=== PATIENT | female | born 1970 | race African-American/Black ===

== ENCOUNTER 2020-04-04 06:21 | Outpatient (CLI) | payer BC, SELFPAY ==
[2020-04-04 16:38] LABS: SARS-CoV-2 RNA PCR Negative
== END 2020-04-04 06:22 | disposition home or self-care (01) ==
LOC: ANHCOVIDDT 06:23
PROVIDERS: Visit Provider Obstetrics & Gynecology
DX: Z01.818 Encounter for other preprocedural examination (principal); Z11.59 Encounter for screening for other viral diseases
CPT/HCPCS: 87635; C9803; U0003

== ENCOUNTER 2020-04-04 09:55 | Outpatient (CLI) | payer BC, SELFPAY ==
--- NOTE | 2020-04-04 10:05 | ECG_ITS ---
Measurements Intervals [place] Rate: 81 P: 60 SC: 216 QRS: 43 QRSD: 90 T: 57 QT: 376 QTc: 439 Interpretive Statements SINUS RHYTHM WITH FIRST DEGREE AV BLOCK DELAYED PRECORDIAL R/S TRANSITION NONSPECIFIC T-WAVE ABNORMALITY- HIGH LATERAL LEADS BASELINE ARTIFACT- I, II, III, AVR, AVL, AVF, V6 ABNORMAL ECG Electronically Signed On 04-04-2020 11:41:24 CDT by Jair Connelly D.O.
== END 2020-04-04 09:56 | disposition home or self-care (01) ==
LOC: ANHSURGERY 10:05
PROVIDERS: PCP Family Medicine; Visit Provider Obstetrics & Gynecology
DX: I10 Essential (primary) hypertension (principal); I44.0 Atrioventricular block, first degree
CPT/HCPCS: 93005

== ENCOUNTER 2020-04-06 00:50 | Day surgery (SDC) | payer BC, SELFPAY ==
--- NOTE | 2020-04-04 06:50 | P.HP_ITS ---
H&P: HPI History of Present Illness Chief complaint: excessive vaginal bleeding Narrative: Samia Boucher is a 49 year old female was admitted for hysteroscopy dilatation curettage as well as probable polypectomy. She complained of vaginal bleeding. She underwent an ultrasound which showed some free fluid in the uterus consistent with probable blood and what appears to be a polyp. Risks and benefits of this procedure including but not exclusive of , aspiration pneumonia, bleeding, transfusion, perforation injury with injury to bowel, bladder, ureters, or other internal organs with need for open laparotomy are reviewed. She received the [employer] handout entitled lap hysteroscopy and dilatation and curettage respectively. She had all questions answered. She asked to proceed Review of Systems Review of Systems: All systems reviewed & are unremarkable except as noted in HPI and below Meds Home Medications and Allergies Allergies Allergy/AdvReac Type Severity Reaction Status Date / Time NKDA Allergy Mild Uncoded 03/17/07 10:23 NKFA Allergy Unknown Uncoded 05/16/03 15:16 Exam Const: General: no acute distress Eyes: General: appearance normal, both eyes and all related structures Neck: Neck: supple and no JVD Thyroid: thyroid normal Resp: Effort & Inspection: normal respiratory effort Auscultation: clear to auscultation bilaterally Cardio: Rate: regular rate Rhythm: regular rhythm GI: Inspection: non-distended GI Palp: Yes Soft to palpation, No Tenderness to palpation present (GI) and No Guarding due to palpation present (GI) Auscultation: normal bowel sounds : General: Yes bladder normal to inspection External Female Exam: normal external appearance and normal appearance of the urethra Speculum Exam - Vagina: normal appearance of the vagina Speculum Exam - Cervix: normal appea karen of the cervix Bimanual exam- vagina & uterus: uterine size normal ( uterus is enlarged. No adnexal masses palpated) Skin: General skin exam: no rashes or lesions noted Extrem: General: normal to inspection and no edema Psych: Mental Status: mental status grossly normal Affect: normal affect Assessment and Plan Additional Plan impression: Postmenopausal bleeding with suspected polyp Plan: Hysteroscopy/dilatation and curettage / polypectomy
[2020-04-04 08:29] VITALS: BMI 33.0
--- NOTE | 2020-04-06 06:47 | WPDHPUPDATE1 ---
History and Physical Update Update Date/Time: 04/06/20 06:47 History and Physical has been reviewed, including an updated exam of the patient. There are NO changes in the patient's condition. Risks, benefits, and alternatives have been discussed and questions answered. Patient agrees to proceed with procedure.
[2020-04-06 11:39] VITALS: BP 168/86; PULSE 82; RESP 20; TEMP 37.1; O2SAT 98
[2020-04-06] MEDS: LACTATED RINGERS 1,000 ML 30 ML IV CONT (11:40)
--- NOTE | 2020-04-06 12:47 | WPDANESEPPF ---
Anes - Initial Pre Proc Eval Procedure: Operation Date: 04/06/20 13:00 Proposed Procedures p Hysteroscopy Dilation And Curettage With Polypectomy - Steven Wolf MD Date/Time: 04/06/20 12:47 Surgeon: Steven Wolf MD Pre Op Diagnosis: excessive vaginal bleeding Patient Data Age: 49 Gender: F Height: 5 ft 9 in Weight: 101.6 kg Last Vital Signs Temp 98.7 F 04/06/20 11:39 Pulse 82 04/06/20 11:39 Resp 20 04/06/20 11:39 BP 168/86 H 04/06/20 11:39 Pulse Ox 98 04/06/20 11:39 Allergies Allergy/AdvReac Type Severity Reaction Status Date / Time No Known Allergies Allergy Verified 04/04/20 08:30 Home Medications Medication Instructions Recorded Confirmed Type amlodipine [Norvasc] 10 mg PO DAILY 04/04/20 04/06/20 History medroxyprogesterone 10 mg PO DAILY 04/04/20 04/04/20 History hydrocodone-acetaminophen [[place]] 1 tablet PO Q4H PRN #20 tablet 04/06/20 Rx Patient hx anesthesia problems: none Family hx anesthesia problems: none PMFSH Past Medical History Medical History (Updated 04/06/20 @ 11:49 by Steffen Montiel MD) Hypertension Migraine Anes - Eval Final PreProcedure Day of Procedure 04/06/20 12:47 Patient weight: normal Heart: regular rate and rhythm Lungs: clear to auscultation Airway: Mallampati scale class II Neurological: alert and oriented Last oral intake: >/= 8 hours ASA classification: II Emergent: no Anesthetic plan: proceed Anesthesia type and monitoring: general GIVS and standard monitoring Informed Consent: The patient's anesthetic plan and its attendant risks and benefits were discussed with the patient/family/POA. Questions were solicited and answers provided to the satisfaction of the patient/family/POA.
--- NOTE | 2020-04-06 13:08 | P.OP_ITS ---
Procedure Note - Detailed Date of procedure: 04/06/20 Pre-op diagnosis: excessive vaginal bleeding Surgeon: Steven Wolf MD Postop diagnosis: Excessive vaginal bleeding/uterine polyp Procedure: Hysteroscopy/polypectomy/dilatation curettage EBL: 5cc Anesthesia: Monitored anesthesia care and paracervical block Complications: None Findings: Uterus sounded to 10cm. Moderate sized uterine polyp Description procedure: The patient was prepped and draped in a normal sterile normal sterile fashion placed in the dorsal lithotomy position. Under excellent IV sedation weighted speculum placed posterior fornix of the vagina. Anterior lip of the cervix was grasped with single-tooth tenaculum. 2.5cc 1% xylocaine anesthesia placed at 2, 4, 8, 10:00 a.m. of the cervix. Uterus was retroverted and sounded to 10cm. Serial dilatation with fragmented dilators performed. This was followed by passes the 5mm visualizing hysteroscope using normal saline as visual by using medium. A moderate sized uterine polyp was seen at the fundus. Each fallopian tube os appeared within normal limits uterine polyp f orceps was passed and the polyp was removed piecemeal. The uterus was then scraped over the entire 360? until a good grating sound was heard. No further tissue could be removed. The procedure was terminated. All sponge, needle, instrument counts were correct. There were no immediate complications
[2020-04-06 13:12] VITALS: BP 128/79; PULSE 84; RESP 16; O2SAT 91
[2020-04-06 13:42] VITALS: BP 166/74; PULSE 67; RESP 16
[2020-04-06 14:12] VITALS: BP 166/83; PULSE 70; RESP 16
== END 2020-04-06 14:39 | disposition home or self-care (01) ==
PROVIDERS: Visit Provider Obstetrics & Gynecology
PROC: 0U5B8ZZ Destruction of Endometrium, Via Natural or Artificial Opening Endoscopic (ICD-10-PCS; CPT 58563; principal; 2020-04-06 13:00)
DX: N84.0 Polyp of corpus uteri (principal); I10 Essential (primary) hypertension; N95.0 Postmenopausal bleeding
CPT/HCPCS: 58558; 88305; A9270; J2250; J2405; J2704; J3010; J7030; J7120